=== PATIENT | female | born 1980 | race Caucasian/White ===

== ENCOUNTER 2016-09-16 16:29 | Inpatient (IN) | payer BC ==
[2016-09-16] VITALS (9 sets, daily range): BP systolic 111–164; BP diastolic 65–87; PULSE 98–119; RESP 16–25; TEMP 98.3–98.9; O2SAT 93–100
[~2016-09-16] VITALS: Ht 152.4 cm; Wt 57.3 kg
[2016-09-16] MEDS ORDERED: methylPREDNISolone SOD SUCC 125 MG/2 ML VIAL IVP ONE (16:45)
[2016-09-16] MEDS ORDERED: SODIUM CHLORIDE 0.9% FLUSH 5 ML FLUSH IVF PRN (16:45)
[2016-09-16] MEDS: RESP: ALBUTEROL 2.5 MG/IPRATROPIUM 0.5 MG NEB (SCH) INH ×2 (16:58→16:59)
--- NOTE | 2016-09-16 17:10 | PD ---
HPI Chief Complaint: Respiratory Distress Time Seen by Provider: 16:40 Travel History International Travel<30 days: No Contact w/Intl Traveler<30days: No Traveled to known affect area: No History of Present Illness HPI 36-year-old female came to the emergency room with history of sudden onset respiratory distress, coughing up frothy and bloody secretions after a lap cholecystectomy. Patient was at the [facility] and was extubated after the surgery and was in the recovery dissection. She was noticed to go into respiratory distress along with the frothy hemoptysis. EMS was called and as per them patient looked uncomfortable sitting up. She was saturating in the 80s. They put her on a BiPAP which soon after made her comfortable and her oxygen saturation improved. She was transported with a BiPAP on. Upon arrival patient looked comfortable and oxygen saturation of 98-99%. She was on pressure of 10 and 5 on the BiPAP. Patient is otherwise a healthy person. She does have history of asthma and occasionally uses albuterol. Patient was moved from the gurney to the stretcher and the EMS BiPAP was taken out. Within a minute patient started to go into respiratory distress and coughing frothy hemoptysis. Her sats went down to 87% on 2 L of oxygen via nasal cannula. BiPAP was reapplied. [facility] Past Medical History Narrative Medical List of her past medical history as reviewed from the nursing note. Asthma: Yes ?: Unknown LMP: 09/16/16 : 0 Past Surgical History Cholecystectomy: Yes Social History Alcohol Use: No Tobacco Use: No Substance Use: No Allergies-Medications (Allergen,Severity, Reaction): Coded Allergies: UNOBTAINABLE (Unverified , 09/16/16) Comments Denied of any medical allergies Reported Meds & Prescriptions Reported Meds & Active Scripts Active Narrative Medication Patient uses albuterol occasionally as per the Review of Systems Except as stated in HPI: all other systems reviewed are Neg Physical Exam Narrative GENERAL: Awake, alert, significant distress SKIN: Warm and dry. HEAD: Atraumatic. Normocephalic. EYES: Pupils equal and round. No scleral icterus. No injection or drainage. ENT: No nasal bleeding or discharge. Mucous membranes pink and moist. NECK: Trachea midline. No JVD. CARDIOVASCULAR: Regular rate and rhythm. No murmur appreciated. RESPIRATORY: Decreased air entry with crackles by lateral up to the apex GASTROINTESTINAL: Abdomen soft, non-tender, nondistended. Hepatic and splenic margins not palpable. MUSCULOSKELETAL: No obvious deformities. No clubbing. No cyanosis. No edema. NEUROLOGICAL: Awake and alert. No obvious cranial nerve deficits. Motor grossly within normal limits. Normal speech. PSYCHIATRIC: Appropriate mood and affect; insight and judgment normal. Data Data Last Documented VS Vital Signs Date Time Temp Pulse Resp B/P Pulse Ox O2 Delivery O2 Flow Rate FiO2 09/16/16 18:00 106 16 140/87 98 Room Air 09/16/16 16:44 100 09/16/16 16:29 98.9 Orders Complete Blood Count With Diff (09/16/16 16:40) Comprehensive Metabolic Panel (09/16/16 16:40) B-Type Natriuretic Peptide (09/16/16 16:40) Prothrombin Time / Inr (Pt) (09/16/16 16:40) Magnesium (Mg) (09/16/16 16:40) Ckmb (Isoenzyme) Profile (09/16/16 16:40) Troponin I (09/16/16 16:40) Arterial Blood Gas (Abg) (09/16/16 16:40) Urinalysis - C+S If Indicated (09/16/16 16:40) Blood Culture (09/16/16 16:40) Iv Access Insert/Monitor (09/16/16 16:40) Electrocardiogram (09/16/16 16:40) Ecg Monitoring (09/16/16 16:40) Oximetry (09/16/16 16:40) Oxygen Administration (09/16/16 16:40) Chest, Single Ap (09/16/16 16:40) Sodium Chloride 0.9% Flush (Ns Flush) (09/16/16 16:45) Methylprednisolone So Succ Inj (Solumedr (09/16/16 16:45) Albuterol-Ipratropium Neb (Duoneb Neb) (09/16/16 16:45) Resp Bipap / Cpap Non Invas Vt (09/16/16 16:40) Ct Pulmonary Angiogram (09/16/16 17:48) CKMB (09/16/16 17:00) CKMB% (09/16/16 17:00) Admit Order (Ed Use Only) (09/16/16 19:04) Labs Laboratory Tests Test 09/16/16 09/16/16 17:00 17:15 White Blood Count 24.4 TH/MM3 Red Blood Count 4.99 MIL/MM3 Hemoglobin 14.4 GM/DL Hematocrit 41.7 % Mean Corpuscular Volume 83.6 FL Mean Corpuscular Hemoglobin 28.8 PG Mean Corpuscular Hemoglobin 34.4 % Concent Red Cell Distribution Width 12.8 % Platelet Count 262 TH/MM3 Mean Platelet Volume 8.0 FL Neutrophils (%) (Auto) 93.9 % Lymphocytes (%) (Auto) 3.3 % Monocytes (%) (Auto) 2.6 % Eosinophils (%) (Auto) 0.0 % Basophils (%) (Auto) 0.2 % Neutrophils # (Auto) 22.9 TH/MM3 Lymphocytes # (Auto) 0.8 TH/MM3 Monocytes # (Auto) 0.6 TH/MM3 Eosinophils # (Auto) 0.0 TH/MM3 Basophils # (Auto) 0.0 TH/MM3 CBC Comment DIFF FINAL Differential Comment Prothrombin Time 10.5 SEC Prothromb Time International 1.0 RATIO Ratio Sodium Level 137 MEQ/L Potassium Level 4.1 MEQ/L Chloride Level 106 MEQ/L Carbon Dioxide Level 21.5 MEQ/L Anion Gap 10 MEQ/L Blood Urea Nitrogen 12 MG/DL Creatinine 0.92 MG/DL Estimat Glomerular Filtration 70 ML/MIN Rate Random Glucose 142 MG/DL Calcium Level 8.2 MG/DL Magnesium Level 1.8 MG/DL Total Bilirubin 0.7 MG/DL Aspartate Amino Transf 65 U/L (AST/SGOT) Alanine Aminotransferase 105 U/L (ALT/SGPT) Alkaline Phosphatase 68 U/L Total Creatine Kinase 128 U/L Creatine Kinase MB 0.5 NG/ML Troponin I LESS THAN 0.02 NG/ML B-Type Natriuretic Peptide 11 PG/ML Total Protein 7.5 GM/DL Albumin 4.1 GM/DL Blood Gas Puncture Site RT RADIAL Blood Gas Patient Temperature 98.6 Blood Gas HCO3 19 mmol/L Blood Gas Base Excess -5.0 mmol/L Blood Gas Oxygen Saturation 96 % Arterial Blood pH 7.37 Arterial Blood Partial 34 mmHg Pressure CO2 Arterial Blood Partial 518 mmHG Pressure O2 Arterial Blood Oxygen Content 21.6 Vol % Arterial Blood 1.4 % Carboxyhemoglobin Arterial Blood Methemoglobin 2.1 % Blood Gas Hemoglobin 15.0 G/DL Oxygen Delivery Device BiPAP Blood Gas Ventilator Setting PEEP6/PS12 Blood Gas Inspired Oxygen 100 % MDM Medical Decision Making Medical Screen Exam Complete: Yes Emergency Medical Condition: Yes Medical Record Reviewed: Yes Interpretation(s) Twelve-lead EKG was reviewed by me. Normal sinus rhythm, normal axis, tachycardia, nonspecific ST-T wave changes. Heart rate of 103 bpm. Differential Diagnosis Flash pulmonary edema, noncardiogenic pulmonary edema Narrative Course 5:32 PM patient was started back on BiPAP at the pressures of 14 and 7 and 100% FiO2. I just reviewed the blood gas and seems like patient is oxygenating rather well. I've asked the respiratory therapist to dial down the FiO2. Patient is in mild metabolic acidosis. In my opinion patient is in non- cardiogenic pulmonary edema probably from the general anesthesia. Chest x-ray shows bibasilar interstitial edema. Awaiting for the blood test results to come back. I have given patient 2 duo chico. I've ordered a stat echocardiogram and spoke with the senior communications specialist Dr. Chatman who has agreed to read it. Patient will require to be admitted to the ICU. Awaiting for the test results. Scars this with the who understands the plan. I've given patient IV Solu-Medrol bolus as well. 5:49 PM CBC is back and shows significant leukocytosis. This could be from the recent stress. I went to reassess her and patient had to come out of her BiPAP in order to cough and spit. She continues to have the hemoptysis. I have ordered a CT pulmonary angiogram at this point. Patient's FiO2 dropped down to 87-88% after being less than a minute off the BiPAP. Heart rate went up to 128. She did produce substantial amount of frothy mucus which was covered with blood. I had a discussion with her and her regarding a possibility of intubation if this continues to happen or gets worse. My concern is that her pulmonary edema will get worse. Based on what the CT pulmonary angiogram shows that would help this decision as well. However, her is strongly opposing any idea of intubation. 6:31 PM patient has not had anymore episode of hemoptysis. She has maintained her oxygen saturation on the BiPAP. Awaiting for the CAT scan to rule out PE. Rest of the blood test results are back. She does have leukocytosis but chemistries within normal limits. 7:[address] Mcmullen who accepted the patient in ICU. Awaiting for the CT pulmonary angiogram. Critical Care Narrative Aggregate critical care time was 75 minutes. Time to perform other separately billable procedures was not included in the critical care time. My time did not include minutes spent treating any other patients simultaneously or on activities that did not directly contribute to the patient's treatment. The services I provided to this patient were to treat and/or prevent clinically significant deterioration that could result in: Respiratory distress, noncardiogenic pulmonary edema, status post cholecystectomy, hypoxia I provided critical care services requiring my management, as noted below: Chart data review, documentation time, medication orders and management, vital sign assessments/reviewing monitor data, ordering and reviewing lab tests, ordering and interpreting/reviewing x-rays and diagnostic studies, care of the patient and discussion of the patient with the admitting physicians. Procedures EKG Prior to Arrival: No Physician Communication Physician Communication Dr. Mcmullen Diagnosis Primary Impression: Non-cardiogenic pulmonary edema Additional Impressions: Respiratory distress Hemoptysis Status post cholecystectomy Leukocytosis Qualified Code: D72.829 - Leukocytosis, unspecified type Hypoxia Admitting Information Admitting Physician Requests: Admit Scripts Albuterol 18 GM Inh (Ventolin Hfa 18 GM Inh)90 Mcg/Act Aer2 Puff INH Q4-6H PRN ( SHORTNESS OF BREATH) #1 INHALER Ref 0 Prov:Ana Maria Garcia MD 09/18/16 Docusate Sodium (Colace)100 Mg Api750 Mg PO BID #60 CAP Ref 0 Prov:Ana Maria Garcia MD 09/18/16 Hydrocodone-Acetaminophen ([place])5-325 mg Tab1 Tab PO Q4H PRN (PAIN) #20 TAB Ref 0 Prov:Ana Maria Garcia MD 09/18/16 Nemo Morales MD Sep 16, 2016 17:10
--- NOTE | 2016-09-16 17:12 | RADRPT ---
EXAM DATE/TIME: 09/16/2016 16:47 [facility] COMPARISON: No previous studies available for comparison. INDICATIONS : Short of breath. MEDICAL HISTORY : None. SURGICAL HISTORY : Cholecystectomy. ENCOUNTER: Initial ACUITY: 1 day PAIN SCORE: 7/10 LOCATION: Bilateral chest FINDINGS: There is hazy airspace disease in the lungs, predominantly on the right side especially in the right upper lobe. Reportedly patient is recently postop with postoperative vomiting noted. Differential bruce gnosis includes aspiration and pneumonia. Trace pleural fluid. No pneumothorax. The heart size normal . CONCLUSION: Hazy airspace disease in the lungs. Reportedly there is recent history of cholecystectomy with vomiti ng postop. Differential diagnosis includes aspiration and pneumonia. Star Chatman MD on September 16, 2016 at 17:08 Board Certified Radiologist. This report was verified electronically.
[2016-09-16 17:34] LABS: AUTOMATED NEUTROPHIL # 22.9 TH/MM3 (1.8-7.7); BASOPHIL % 0.2 % (0.0-2.0); HEMATOCRIT 41.7 % (35.0-46.0); HEMO FLAGS DIFF FINAL; LYMPH % 3.3 % (9.0-44.0); LYMPHOCYTE # 0.8 TH/MM3 (1.0-4.8); MEAN CELL VOLUME 83.6 FL (80.0-100.0); MEAN CORPUSCULAR HEMOGLOBIN 28.8 PG (27.0-34.0); MEAN CORPUSCULAR HGB CONC 34.4 % (32.0-36.0); MONO % 2.6 % (0.0-8.0); NEUT % 93.9 % (16.0-70.0); PLATELET COUNT 262 TH/MM3 (150-450); RED BLOOD COUNT 4.99 MIL/MM3 (4.00-5.30); RED CELL DISTRIBUTION WIDTH 12.8 % (11.6-17.2); WHITE BLOOD COUNT 24.4 TH/MM3 (4.0-11.0)
[2016-09-16 17:44] LABS: PROTHROMBIN TIME - PATIENT 10.5 SEC (9.8-11.6)
[2016-09-16 18:06] LABS: BLOOD GAS CARBOXYHEMOGLOBIN 1.4 % (0-4); BLOOD GAS HCO3 19 mmol/L (22-26); BLOOD GAS METHEMOGLOBIN 2.1 % (0-2); BLOOD GAS O2 HGB SATURATION 96 % (90-100); BLOOD GAS OXYGEN CONTENT 21.6 Vol % (12.0-20.0); BLOOD GAS PCO2 34 mmHg (38-42); BLOOD GAS PO2 518 mmHG (61-120); CRITICAL VALUE NO; OXYGEN DEVICE BiPAP; TEMP CORR TO 98.6; VENT SETTINGS PEEP6/PS12
[2016-09-16 18:07] LABS: DRAW SITE RT RADIAL; FIO2 100 %; NUMBER OF ARTERIAL PUNCTURES 1; STAT YES; ULNAR PULSE PRESENT
[2016-09-16 18:16] LABS: ALKALINE PHOSPHATASE 68 U/L (45-117); ALT (GPT) 105 U/L (10-53); ANION GAP 10 MEQ/L (5-15); AST (GOT) 65 U/L (15-37); BICARBONATE 21.5 MEQ/L (21.0-32.0); BLOOD UREA NITROGEN 12 MG/DL (7-18); CHLORIDE 106 MEQ/L (98-107); CREATINE KINASE 128 U/L (26-192); GLOMERULAR FILTRATION RATE 70 ML/MIN (>89); MAGNESIUM 1.8 MG/DL (1.5-2.5); POTASSIUM 4.1 MEQ/L (3.5-5.1); SODIUM (NA) 137 MEQ/L (136-145); TOTAL BILIRUBIN ADULT 0.7 MG/DL (0.2-1.0)
[2016-09-16 18:29] LABS: CKMB 0.5 NG/ML (0.5-3.6)
[2016-09-16] MEDS ORDERED: IOHEXOL 350 MG/ML 10 ML VIAL (for RAD DIAG) IV ONE (19:24)
--- NOTE | 2016-09-16 19:38 | RADRPT ---
EXAM DATE/TIME: 09/16/2016 19:19 [facility] COMPARISON: No previous studies available for comparison. INDICATIONS : Post-operation cholecystectomy today; now short of breath with bloody, frothy, sputum. IV CONTRAST: 60 cc Omnipaque 350 (iohexol) IV RADIATION DOSE: 23.09 CTDIvol (mGy) MEDICAL HISTORY : Asthma SURGICAL HISTORY : Cholecystectomy. ENCOUNTER: Initial ACUITY: 1 day PAIN SCALE: 0/10 LOCATION: chest TECHNIQUE: Volumetric scanning of the chest was performed using a pulmonary embolism protocol MIP images were re constructed. Using automated exposure control and adjustment of the mA and/or kV according to patien t size, radiation dose was kept as low as reasonably achievable to obtain optimal diagnostic quality images. FINDINGS: PULMONARY ARTERIES: No filling defects are seen in the pulmonary arteries through the segmental level. LUNGS: There are areas of patchy and confluent areas of consolidation seen throughout the lungs. PLEURAE: There is no pleural thickening or pleural effusion. MEDIASTINUM: There is good visualization of the great vessels of the middle mediastinum. No evidence of mediastin al or hilar adenopathy/mass. MUSCULOSKELETAL: Within normal limits for patient age. MISCELLANEOUS: The visualized upper abdominal organs demonstrate no acute abnormality. CONCLUSION: 1. No pulmonary embolus. 2. Widespread consolidation throughout the lungs. This is likely post inflammatory or related to genesis a. Robert Brown MD on September 16, 2016 at 19:34 Board Certified Radiologist. This report was verified electronically.
[2016-09-16] MEDS ORDERED: LORazepam 2 MG/ML VIAL IV PUSH PRN (20:45)
[2016-09-16] MEDS ORDERED: LEVOFLOXACIN 750 MG PREMIX INJ 150 ML IV ONE (21:00)
[2016-09-16] MEDS ORDERED: ONDANSETRON HCL 4 MG/2 ML VIAL IV PRN (22:15)
[2016-09-16] MEDS ORDERED: RESP: ALBUTEROL 2.5 MG/3 ML NEB (PRN) INH (22:15)
[2016-09-16] MEDS ORDERED: SODIUM CHLORIDE 0.9% FLUSH 5 ML FLUSH IV FLUSH PRN (22:15)
[2016-09-16] MEDS ORDERED: MORPHINE SULFATE 4 MG/ML INJ IV PRN (22:15)
[2016-09-16] MEDS ORDERED: CHLORHEXIDINE GLUCONATE 2 % 1 PACK (2 CLOTHS) TOP PRN (22:15)
[2016-09-16] MEDS ORDERED: MISCELLANEOUS NURSING INFORMATION XX SCH (22:15)
[2016-09-16 22:53] LABS: BACTERIA, URINE OCC /hpf; BLOOD, URINE NEG (NEG); COMMENT (UR) CULT NOT INDICATED; CULTURE IF INDICATED CULT NOT INDICATED; GLUCOSE,URINE 150 mg/dL (NEG); KETONE, URINE 10 mg/dL (NEG); MUCUS URINE FEW /lpf (OCC); NITRITE,URINE NEG (NEG); PH, URINE 5.5 (5.0-8.5); SQUAMOUS EPITHELIAL CELL URINE 3 /hpf (0-5); URINE COLOR YELLOW (YELLW/STRAW)
--- NOTE | 2016-09-16 23:15 | HHI.HP ---
HPI Service Critical Care Medicine Primary Care Physician Unknown Admission Diagnosis noncardiogenic pulmonary edema, hemoptysis, hypoxia, respiratory dis Diagnosis: Travel History International Travel<30 Days: No Contact w/Intl Traveler <30 Da: No Traveled to Known Affected Are: No History of Present Illness 36 yo Female with PMH of asthma who states that she underwent lap cholecystectomy today by Dr. Agosto due to a 1.5 cm cholelithiasis and possible gallbladder polyp. She was extubated postoperatively and then went into respiratory distress and was coughing up pink frothy sputum. Sats were in the 80s and she was placed on Bipap 10/5 and was very comfortable on Bipap but then she removed her Bipap to cough and sats were in mid 80s on NC so Bipap mask was replaced. CXR was consistent with pulmonary edema. She denies chest pain. No h/o VTE or prior cardiac history. Afebrile. Denies abdominal pain or nausea. Review of Systems ROS Limitations: Clinical Condition Past Family Social History Allergies: Coded Allergies: UNOBTAINABLE (Unverified , 09/16/16) Past Medical History Asthma Past Surgical History She denies prior surgical history. Lap cholecystectomy today per Surendra Reported Medications Occasional albuterol as needed Family History Father of biliary cancer at age 65 Social History She denies history of tobacco abuse, Drinks occasional alcohol (about one duglas per week) No illicit drug use Physical Exam Vital Signs Vital Signs Date Time Temp Pulse Resp B/P Pulse Ox O2 Delivery O2 Flow Rate FiO2 09/16/16 23:00 98.3 111 21 130/74 97 09/16/16 21:54 98 25 111/66 96 3 09/16/16 20:43 93 Nasal Cannula 4.00 09/16/16 20:23 97 3 09/16/16 20:00 100 100 09/16/16 18:00 106 16 140/87 98 Room Air 09/16/16 17:02 119 16 164/65 98 Room Air 09/16/16 16:44 99 100 09/16/16 16:35 99 BiPAP 100 09/16/16 16:35 105 22 93 Room Air 09/16/16 16:29 98.9 110 16 158/79 93 Physical Exam Temp 98.9 pulse 90 respirations 18 blood pressure 130/74 700% on 3 L nasal cannula GENERAL: Well-nourished, well-developed patient who is sitting up in bed, pleasant, talkative. SKIN: Warm and dry. HEAD: Atraumatic. Normocephalic. EYES: Pupils equal and round. No scleral icterus. No injection or drainage. ENT: No nasal bleeding or discharge. Mucous membranes pink and moist. NECK: Trachea midline. No JVD. CARDIOVASCULAR: Regular rate and rhythm, sinus rhythm on the monitors.. No murmurs rubs or gallops. RESPIRATORY: Breathing comfortably on nasal cannula without accessory muscle use. She has bibasilar Rales but is clear throughout the remainder of lung osei. Breath sounds are equal bilaterally. No stridor. GASTROINTESTINAL: Abdomen soft, non-tender, mildly distended. No bowel sounds. There are Steri-Strips in place at trocar sites, no blood. MUSCULOSKELETAL: Extremities without clubbing, cyanosis, or edema. No obvious deformities. NEUROLOGICAL: Awake and alert. No obvious cranial nerve deficits. Motor grossly within normal limits. Five out of 5 muscle strength in the arms and legs. Normal speech. Laboratory Laboratory Tests Test 09/16/16 09/16/16 09/16/16 17:00 17:15 22:00 White Blood Count 24.4 Red Blood Count 4.99 Hemoglobin 14.4 Hematocrit 41.7 Mean Corpuscular Volume 83.6 Mean Corpuscular Hemoglobin 28.8 Mean Corpuscular Hemoglobin 34.4 Concent Red Cell Distribution Width 12.8 Platelet Count 262 Mean Platelet Volume 8.0 Neutrophils (%) (Auto) 93.9 Lymphocytes (%) (Auto) 3.3 Monocytes (%) (Auto) 2.6 Eosinophils (%) (Auto) 0.0 Basophils (%) (Auto) 0.2 Neutrophils # (Auto) 22.9 Lymphocytes # (Auto) 0.8 Monocytes # (Auto) 0.6 Eosinophils # (Auto) 0.0 Basophils # (Auto) 0.0 CBC Comment DIFF FINAL Differential Comment Prothrombin Time 10.5 Prothromb Time International 1.0 Ratio Sodium Level 137 Potassium Level 4.1 Chloride Level 106 Carbon Dioxide Level 21.5 Anion Gap 10 Blood Urea Nitrogen 12 Creatinine 0.92 Estimat Glomerular Filtration 70 Rate Random Glucose 142 Calcium Level 8.2 Magnesium Level 1.8 Total Bilirubin 0.7 Aspartate Amino Transf 65 (AST/SGOT) Alanine Aminotransferase 105 (ALT/SGPT) Alkaline Phosphatase 68 Total Creatine Kinase 128 Creatine Kinase MB 0.5 Troponin I LESS THAN 0.02 B-Type Natriuretic Peptide 11 Total Protein 7.5 Albumin 4.1 Blood Gas Puncture Site RT RADIAL Blood Gas Patient Temperature 98.6 Blood Gas HCO3 19 Blood Gas Base Excess -5.0 Blood Gas Oxygen Saturation 96 Arterial Blood pH 7.37 Arterial Blood Partial 34 Pressure CO2 Arterial Blood Partial 518 Pressure O2 Arterial Blood Oxygen Content 21.6 Arterial Blood 1.4 Carboxyhemoglobin Arterial Blood Methemoglobin 2.1 Blood Gas Hemoglobin 15.0 Oxygen Delivery Device BiPAP Blood Gas Ventilator Setting PEEP6/PS12 Blood Gas Inspired Oxygen 100 Urine Color YELLOW Urine Turbidity CLEAR Urine pH 5.5 Urine Specific [place] GREATER THAN 1.050 Urine Protein TRACE Urine Glucose (UA) 150 Urine Ketones 10 Urine Occult Blood NEG Urine Nitrite NEG Urine Bilirubin NEG Urine Urobilinogen LESS THAN 2.0 Urine Leukocyte Esterase TRACE Urine WBC 2 Urine Squamous Epithelial 3 Cells Urine Bacteria OCC Urine Mucus FEW Microscopic Urinalysis Comment CULT NOT INDICATED Date/Time Procedure Status Source Growth 09/16/16 17:05 Aerobic Blood Culture Received Blood Peripheral Pending 09/16/16 17:05 Anaerobic Blood Culture Received Blood Peripheral Pending Result Diagram: 09/16/16 1700 09/16/16 1700 Assessment and Plan Assessment and Plan NEURO: Currently denies postoperative pain Lortab prn pain. Morphine when necessary breakthrough pain RESP: Acute noncardiogenic pulmonary edema h/o asthma This likely represents negative pressure pulmonary edema as she does not appear intravascularly overloaded. In fact she may be a little dry as she is thirsty, urine specific gravity elevated. I/o from OR not available to me currently. She has no stridor. Natural course of this process is to improve with supportive care. Wean NC as tolerated. Received solumedrol 125 mg IV in the ED. Albuterol q2 prn. CTA negative for PE. Bilateral opacities c/w pulmonary edema Followup Echo. Serial troponins negative. CV: She is normotensive. Monitor hemodynamics GI: POD #0 Laparoscopic cholecystectomy pathology pending Mild transaminase elevation expected post-op Clear liquids FEN/RENAL: Monitor I/o. Monitor electrolytes and replace as indicated. ID: Leukocytosis likely demargination secondary to surgery. Bilateral opacities on CT most consistent with pulmonary edema. Aspiration also possible but less likely given that she was npo. Will cover with levaquin up front but if she improves rapidly (as would be expected of neg pressure pulmonary edema), then could stop antibiotics from my standpoint. HEME: No acute hematologic issues. ENDO: Mild hyperglycemia secondary to surgery, steroid. Low-dose insulin sliding scale at bedside glucose is greater than 185. PROPH: Heparin subcutaneous for DVT prophylaxis start 09/17/16. Protonix 40 mg IV daily for stress ulcer prophylaxis. ACCESS: Peripheral IV providing adequate access at this time. Patient and her were updated at bedside and questions answered. Dr. Agosto updated 09/17. Level 3 Debra Mcmullen MD Sep 16, 2016 23:15
[2016-09-17] VITALS (14 sets, daily range): BP systolic 96–128; BP diastolic 58–67; PULSE 78–106; RESP 23–32; TEMP 98–98.5; O2SAT 94–100
[2016-09-17] MEDS: ACETAMINOPHEN 325 MG TAB PO PRN ×4 (02:42→21:47)
[2016-09-17] MEDS: CHLORHEXIDINE GLUCONATE 2 % 1 PACK (2 CLOTHS) TOP SCH (04:00)
[2016-09-17 04:32] LABS: AUTOMATED NEUTROPHIL # 18.4 TH/MM3 (1.8-7.7); HEMATOCRIT 38.4 % (35.0-46.0); HEMO FLAGS DIFF FINAL; LYMPH % 4.2 % (9.0-44.0); LYMPHOCYTE # 0.8 TH/MM3 (1.0-4.8); MEAN CELL VOLUME 83.2 FL (80.0-100.0); MEAN CORPUSCULAR HEMOGLOBIN 28.4 PG (27.0-34.0); MEAN CORPUSCULAR HGB CONC 34.2 % (32.0-36.0); NEUT % 92.8 % (16.0-70.0); PLATELET COUNT 247 TH/MM3 (150-450); RED BLOOD COUNT 4.62 MIL/MM3 (4.00-5.30); RED CELL DISTRIBUTION WIDTH 12.6 % (11.6-17.2); WHITE BLOOD COUNT 19.9 TH/MM3 (4.0-11.0)
[2016-09-17 04:49] LABS: ANION GAP 11 MEQ/L (5-15); BICARBONATE 23.2 MEQ/L (21.0-32.0); BLOOD UREA NITROGEN 9 MG/DL (7-18); CHLORIDE 104 MEQ/L (98-107); GLOMERULAR FILTRATION RATE 72 ML/MIN (>89); POTASSIUM 4.1 MEQ/L (3.5-5.1); SODIUM (NA) 138 MEQ/L (136-145)
--- NOTE | 2016-09-17 06:51 | RADRPT ---
EXAM DATE/TIME: 09/17/2016 04:38 [facility] COMPARISON: CHEST SINGLE AP, September 16, 2016, 16:47. INDICATIONS : Shortness of breath. MEDICAL HISTORY : None. SURGICAL HISTORY : Cholecystectomy. ENCOUNTER: Subsequent ACUITY: 2 days PAIN SCORE: Non-responsive. LOCATION: chest FINDINGS: The cardiac silhouette is normal in transverse diameter. There is patchy alveolar disease bilaterally compatible with edema or pneumonia. No pleural effusions are identified. CONCLUSION: 1. Patchy alveolar disease characteristic of edema or pneumonia. There has been no significant owusu e when compared to the prior exam. Abilio Albert MD on September 17, 2016 at 6:49 Board Certified Radiologist. This report was verified electronically.
[2016-09-17] MEDS ORDERED: HEPARIN SODIUM - SQ 10,000 UNITS/ML VIAL SQ SCH (09:00)
[2016-09-17] MEDS ORDERED: MORPHINE SULFATE 4 MG/ML INJ IV PUSH PRN (09:00)
[2016-09-17] MEDS ORDERED: PANTOPRAZOLE SODIUM 40 MG VIAL IV SCH (09:00)
[2016-09-17] MEDS ORDERED: ACETAMINOPHEN/HYDROcodone 325 MG/5 MG TAB PO PRN ×2 (09:00)
[2016-09-17] MEDS: POTASSIUM PHOSPHATE/SODIUM PHOSPHATE 250 MG TAB PO SCH ×3 (09:26→17:34)
[2016-09-17] MEDS: SODIUM CHLORIDE 0.9% FLUSH 5 ML FLUSH IV FLUSH SCH ×2 (09:28→21:43)
[2016-09-17] MEDS: DOCUSATE SODIUM 100 MG CAP PO SCH ×2 (09:29→21:00)
--- NOTE | 2016-09-17 09:32 | PD.TRANSFR ---
Transfer Summary Admission Date Sep 16, 2016 at 19:07 Admitting Diagnosis noncardiogenic pulmonary edema, hemoptysis, hypoxia, respiratory dis Diagnoses: (1) Non-cardiogenic pulmonary edema Diagnosis: Principal (2) Hypoxia Diagnosis: Principal (3) Respiratory distress Diagnosis: Principal (4) Leukocytosis Diagnosis: Principal (5) Hemoptysis Diagnosis: Principal Transfer Summary/Subjective 36 yo Female with PMH of asthma who states that she underwent lap cholecystectomy today by Dr. Agosto due to a 1.5 cm cholelithiasis and possible gallbladder polyp. She was extubated postoperatively and then went into respiratory distress and was coughing up pink frothy sputum. Sats were in the 80s and she was placed on Bipap 10/5 and was very comfortable on Bipap but then she removed her Bipap to cough and sats were in mid 80s on [place] so Bipap mask was replaced. CXR was consistent with pulmonary edema. She denies chest pain. No h/o VTE or prior cardiac history. Afebrile. Denies abdominal pain or nausea. SUBJ 09/17: Sitting up in bed breathing comfortably. Chest x-ray shows unchanged pulmonary edema. CT pulmonary angiogram shows no PE, but bilateral pulmonary edema. I have ordered single dose of Lasix. Bedside echo shows normal EF. Full echo pending Objective Vital Signs Date Time Temp Pulse Resp B/P Pulse Ox O2 Delivery O2 Flow Rate FiO2 09/17/16 06:00 78 09/17/16 04:00 98.3 26 102/61 98 09/16/16 21:54 3 09/16/16 20:43 Nasal Cannula 09/16/16 20:00 100 Result Diagram: 09/17/16 0350 09/17/16 0350 Other Results Laboratory Tests Test 09/16/16 17:15 Blood Gas Puncture Site RT RADIAL Blood Gas Patient Temperature 98.6 Blood Gas HCO3 19 mmol/L (22-26) Blood Gas Base Excess -5.0 mmol/L (-2-2) Blood Gas Oxygen Saturation 96 % (90-100) Arterial Blood pH 7.37 (7.380-7.420) Arterial Blood Partial 34 mmHg (38-42) Pressure CO2 Arterial Blood Partial 518 mmHG Pressure O2 (61-120) Arterial Blood Oxygen Content 21.6 Vol % (12.0-20.0) Arterial Blood 1.4 % (0-4) Carboxyhemoglobin Arterial Blood Methemoglobin 2.1 % (0-2) Blood Gas Hemoglobin 15.0 G/DL (12.0-16.0) Oxygen Delivery Device BiPAP Blood Gas Ventilator Setting PEEP6/PS12 Blood Gas Inspired Oxygen 100 % Objective Remarks GENERAL: Well-nourished, well-developed patient who is sitting up in bed, pleasant SKIN: Warm and dry. HEAD: Atraumatic. Normocephalic. EYES: Pupils equal and round. No scleral icterus. No injection or drainage. ENT: No nasal bleeding or discharge. Mucous membranes pink and moist. NECK: Trachea midline. No JVD. CARDIOVASCULAR: Regular rate and rhythm, sinus rhythm on the monitors.. No murmurs rubs or gallops. Bedside echo Nl EF RESPIRATORY: Breathing comfortably on nasal cannula without accessory muscle use. Mild bibasilar Rales but is clear throughout the remainder of lung osei. Breath sounds are equal bilaterally. No stridor. GASTROINTESTINAL: Abdomen soft, non-tender, mildly distended. There are Steri- Strips in place at trocar sites, no blood. MUSCULOSKELETAL: Extremities without clubbing, cyanosis, or edema. No obvious deformities. NEUROLOGICAL: Awake and alert. No obvious cranial nerve deficits. Motor grossly within normal limits. A/P Assessment and Plan NEURO: Lortab prn pain. Morphine when necessary breakthrough pain RESP: Acute noncardiogenic pulmonary edema h/o asthma Most likely negative pressure pulmonary edema as she does not appear intravascularly overloaded. Received solumedrol 125 mg IV in the ED. Albuterol q2 prn. CTA negative for PE. Bilateral opacities c/w pulmonary edema Followup Formal Echo. Bedside echo with normal ejection fraction Serial troponins negative. IV Lasix 20 mg 1 CV: She is normotensive. Monitor hemodynamics IV Lasix 20 mg 1 GI: POD #1 Laparoscopic cholecystectomy pathology pending Mild transaminase elevation post-op Clear liquids, advance diet per Dr. Agosto D/W general surgery Dr. Agosto for post op-he will see her FEN/RENAL: Monitor I/o. Monitor electrolytes and replace as indicated. ID: Leukocytosis likely demargination secondary to surgery and stress Bilateral opacities on CT most consistent with pulmonary edema. Aspiration also possible but less likely that she was npo, but cannot be completely ruled out given. Will cover with Unasyn up front but if she improves rapidly (as would be expected of neg pressure pulmonary edema), then could stop antibiotics HEME: No acute hematologic issues. ENDO: Mild hyperglycemia secondary to surgery, steroid. Low-dose insulin sliding scale at bedside glucose is greater than 185. PROPH: Heparin subcutaneous for DVT prophylaxis start 09/17/16. Protonix 40 mg IV daily for stress ulcer prophylaxis. ACCESS: Peripheral IV providing adequate access at this time. Patient and her were updated at bedside and questions answered. Dr. Agosto updated 09/17. Level 3 [facility] to assume care in am. Continue ICU care for another day Darlene Jones MD Sep 17, 2016 09:32
[2016-09-17] MEDS ORDERED: FUROSEMIDE 20 MG/2 ML VIAL IV PUSH ONE (10:00)
[2016-09-17] MEDS ORDERED: MORPHINE SULFATE 4 MG/ML INJ IV PRN (10:15)
[2016-09-17] MEDS: RESP: ALBUTEROL 2.5 MG/IPRATROPIUM 0.5 MG NEB (SCH) NEB ×3 (10:31→20:26)
[2016-09-17] MEDS: HEPARIN SODIUM - SQ 10,000 UNITS/ML VIAL SQ SCH ×2 (10:59→17:34)
[2016-09-17] MEDS: AMPICILLIN-SULBACTAM INJ 1,500 MG in SODIUM CHLORIDE 0.9% INJ 100 ML IV SCH ×2 (12:48→17:35)
--- NOTE | 2016-09-17 16:12 | HHI.PR ---
Subjective Subjective Notes awake, alert, sore, requesting tylenol. Off O2, room air sat 97%. No labored respirations. tolerated food, voiding well. Objective Vitals/I&O Vital Signs Date Time Temp Pulse Resp B/P Pulse Ox O2 Delivery O2 Flow Rate FiO2 09/17/16 10:34 99 Nasal Cannula 1.00 09/17/16 06:00 78 09/17/16 04:00 98.3 26 102/61 09/16/16 20:00 100 Labs Laboratory Tests Test 09/16/16 09/16/16 09/16/16 09/16/16 17:00 17:15 22:00 22:55 White Blood Count 24.4 Red Blood Count 4.99 Hemoglobin 14.4 Hematocrit 41.7 Mean Corpuscular Volume 83.6 Mean Corpuscular Hemoglobin 28.8 Mean Corpuscular Hemoglobin 34.4 Concent Red Cell Distribution Width 12.8 Platelet Count 262 Mean Platelet Volume 8.0 Neutrophils (%) (Auto) 93.9 Lymphocytes (%) (Auto) 3.3 Monocytes (%) (Auto) 2.6 Eosinophils (%) (Auto) 0.0 Basophils (%) (Auto) 0.2 Neutrophils # (Auto) 22.9 Lymphocytes # (Auto) 0.8 Monocytes # (Auto) 0.6 Eosinophils # (Auto) 0.0 Basophils # (Auto) 0.0 CBC Comment DIFF FINAL Differential Comment Prothrombin Time 10.5 Prothromb Time International 1.0 Ratio Sodium Level 137 Potassium Level 4.1 Chloride Level 106 Carbon Dioxide Level 21.5 Anion Gap 10 Blood Urea Nitrogen 12 Creatinine 0.92 Estimat Glomerular Filtration 70 Rate Random Glucose 142 Calcium Level 8.2 Magnesium Level 1.8 Total Bilirubin 0.7 Aspartate Amino Transf 65 (AST/SGOT) Alanine Aminotransferase 105 (ALT/SGPT) Alkaline Phosphatase 68 Total Creatine Kinase 128 Creatine Kinase MB 0.5 Troponin I LESS THAN 0.02 B-Type Natriuretic Peptide 11 Total Protein 7.5 Albumin 4.1 Blood Gas Puncture Site RT RADIAL Blood Gas Patient Temperature 98.6 Blood Gas HCO3 19 Blood Gas Base Excess -5.0 Blood Gas Oxygen Saturation 96 Arterial Blood pH 7.37 Arterial Blood Partial 34 Pressure CO2 Arterial Blood Partial 518 Pressure O2 Arterial Blood Oxygen Content 21.6 Arterial Blood 1.4 Carboxyhemoglobin Arterial Blood Methemoglobin 2.1 Blood Gas Hemoglobin 15.0 Oxygen Delivery Device BiPAP Blood Gas Ventilator Setting PEEP6/PS12 Blood Gas Inspired Oxygen 100 Urine Color YELLOW Urine Turbidity CLEAR Urine pH 5.5 Urine Specific [place] GREATER THAN 1.050 Urine Protein TRACE Urine Glucose (UA) 150 Urine Ketones 10 Urine Occult Blood NEG Urine Nitrite NEG Urine Bilirubin NEG Urine Urobilinogen LESS THAN 2.0 Urine Leukocyte Esterase TRACE Urine WBC 2 Urine Squamous Epithelial 3 Cells Urine Bacteria OCC Urine Mucus FEW Microscopic Urinalysis Comment CULT NOT INDICATED Nasal Screen MRSA (PCR) NEGATIVE Test 09/16/16 09/17/16 23:43 03:50 Troponin I LESS THAN 0.02 LESS THAN 0.02 White Blood Count 19.9 Red Blood Count 4.62 Hemoglobin 13.1 Hematocrit 38.4 Mean Corpuscular Volume 83.2 Mean Corpuscular Hemoglobin 28.4 Mean Corpuscular Hemoglobin 34.2 Concent Red Cell Distribution Width 12.6 Platelet Count 247 Mean Platelet Volume 7.8 Neutrophils (%) (Auto) 92.8 Lymphocytes (%) (Auto) 4.2 Monocytes (%) (Auto) 3.0 Eosinophils (%) (Auto) 0.0 Basophils (%) (Auto) 0.0 Neutrophils # (Auto) 18.4 Lymphocytes # (Auto) 0.8 Monocytes # (Auto) 0.6 Eosinophils # (Auto) 0.0 Basophils # (Auto) 0.0 CBC Comment DIFF FINAL Differential Comment Sodium Level 138 Potassium Level 4.1 Chloride Level 104 Carbon Dioxide Level 23.2 Anion Gap 11 Blood Urea Nitrogen 9 Creatinine 0.90 Estimat Glomerular Filtration 72 Rate Random Glucose 160 Calcium Level 8.4 Phosphorus Level 1.8 Magnesium Level 2.0 Date/Time Procedure Status Source Growth 09/16/16 17:05 Aerobic Blood Culture - Preliminary Resulted Blood Peripheral NO GROWTH IN 1 DAY 09/16/16 17:05 Anaerobic Blood Culture - Preliminary Resulted Blood Peripheral NO GROWTH IN 1 DAY Abdomen: Non-distended, Other (Incisions clean and dry, no erythema. Minimal ecchymosis at umbilicus.), Post-op tenderness Extremities: No edema, Perfused, SCD's on A/P Assessment and Plan POD 1 lap gray complicated postop by presumed negative pressure pulmonary edema. Clinically improved. D/W Dr Jones re: [place] [facility] [place] clinically improved. He agrees, wants to check CXR for "clearing" of edema. D/W pt and and bedside RN. Follow up with me in 1-2 weeks. Abilio Agosto MD Sep 17, 2016 16:12
--- NOTE | 2016-09-17 16:44 | EKG ---
Date Performed: 09/16/2016 Time Performed: 16:42:16 PTAGE: 36 years EKG: SINUS TACHYCARDIA POSSIBLE RIGHT VENTRICULAR CONDUCTION DELAY NONSPECIFIC T-WAVE ABNORMALIT Y ABNORMAL RHYTHM ECG NO PREVIOUS TRACING DOCTOR: Hilton Melendez Interpretating Date/Time 09/17/2016 16:41:44
--- NOTE | 2016-09-17 17:09 | EKG ---
Date Performed: 09/17/2016 Time Performed: 01:04:52 PTAGE: 36 years EKG: Sinus rhythm . Compared to prior tracing no significant change Normal ECG NO PREVIOUS TRACING DOCTOR: Hilton Melendez Interpretating Date/Time 09/17/2016 16:59:53
--- NOTE | 2016-09-17 19:02 | EC ---
Study Study Date:09/17/2016 STUDY CONCLUSIONS SUMMARY LEFT VENTRICLE: The cavity size was normal. Systolic function was normal. The estimated ejection fraction was in the range of 55% to 60%. Wall motion was normal; there were no regional wall motion abnormalities. Left ventricular diastolic function parameters were normal. If LV function is below 40, please consider prescribing an ACEI or ARB or document rationale for non-use. PROCEDURE DATA STUDY STATUS: Elective. Procedure: Transthoracic echocardiography. Image quality was good. Scanning was performed from the parasternal, apical, and subcostal acoustic windows. Study completion: The patient tolerated the procedure well. Transthoracic echocardiography. M-mode, complete 2D, complete spectral Doppler, and color Doppler. Height: Height: 60in. Weight: Weight: 113.8lb. Body mass index: BMI: 22.3kg/m^2. Body surface area: BSA: 1.47m^2. Patient status: Inpatient. CARDIAC ANATOMY LEFT VENTRICLE: The cavity size was normal. Systolic function was normal. The estimated ejection fraction was in the range of 55% to 60%. Wall motion was normal; there were no regional wall motion abnormalities. Left ventricular diastolic function parameters were normal. AORTIC VALVE: The valve appears to be grossly normal. Doppler: There was no stenosis. No significant regurgitation. MITRAL VALVE: The valve appears to be grossly normal. Doppler: There was no evidence for stenosis. Trace regurgitation. Peak gradient: 2mm Hg (D). RIGHT VENTRICLE: The cavity size was normal. Systolic function was normal. PULMONIC VALVE: The valve appears to be grossly normal. Doppler: There was no evidence for stenosis. Trace regurgitation. TRICUSPID VALVE: The valve appears to be grossly normal. Doppler: There was no evidence for stenosis. Trace regurgitation. PERICARDIUM: There was no pericardial effusion. Patient weight: 113.8lb _Ejection fraction:_ 65-75% _Fractional shortening:_ 32% up to 5Kg 5-11.5Kg 11.6-22.9Kg 23-45Kg 45-57Kg Aortic Root 7-13 <17 13-22 17-27 17-27 LA diam 6-13 <23 24-38 33-47 37-40 RVID 10-17 7-15 7-15 7-18 8-17 LVIDd 12-22 <32 24-38 33-47 37-40 LVPW 2-4 3-6 5-7 6-8 7-8 IVS 2-4 3-6 5-7 6-8 7-8 BASIC MEASUREMENTS ADULT Normal Left ventricle LV internal dimension, ED, chordal level, *41.9 mm 43-52 PLAX LV internal dimension, ES, chordal level, 26.9 mm 23-38 PLAX Fractional shortening, chordal level, PLAX 36 % >29 LV posterior wall thickness, ED 7.45 mm IVS/LVPW ratio, ED 1 <1.3 Ventricular septum Septal thickness, ED 7.45 mm Aortic valve Leaflet separation 17 mm 15-26 Aorta Root diameter, ED 25 mm Left atrium Anterior-posterior dimension 25 mm Anterior-posterior dimension index 1.7 cm/m^2 <2.2 BASIC MEASUREMENTS ADULT Normal Aortic valve Leaflet separation 17 mm 15 DOPPLER MEASUREMENTS ADULT Normal Mitral valve Peak E-wave velocity 76 cm/s Peak A-wave velocity 45.9 cm/s Peak gradient, D 2 mm Hg Peak E/A ratio 1.7 Tricuspid valve Regurgitant peak velocity 182 cm/s Peak RV-RA gradient, S 13 mm Hg Maximal regurgitant velocity 182 cm/s Pulmonic valve Peak velocity, S 64.7 cm/s LEGEND: Mean values are shown as u=mean value. Asterisk (*) corcoran values outside specified normal range. Prepared and signed by Moses Hoang [id number]
[2016-09-18] VITALS: BP 93/57; PULSE 97; RESP 25; TEMP 98.2; O2SAT 92
[2016-09-18] MEDS: POTASSIUM PHOSPHATE/SODIUM PHOSPHATE 250 MG TAB PO SCH ×2 (00:18→06:23)
[2016-09-18] MEDS: AMPICILLIN-SULBACTAM INJ 1,500 MG in SODIUM CHLORIDE 0.9% INJ 100 ML IV SCH ×2 (00:18→06:23)
[2016-09-18 02:00] VITALS: PULSE 89
[2016-09-18] MEDS: RESP: ALBUTEROL 2.5 MG/IPRATROPIUM 0.5 MG NEB (SCH) NEB ×2 (03:24→08:28)
[2016-09-18] MEDS: ACETAMINOPHEN 325 MG TAB PO PRN (03:55)
[2016-09-18] MEDS: HEPARIN SODIUM - SQ 10,000 UNITS/ML VIAL SQ SCH (03:56)
[2016-09-18] MEDS: CHLORHEXIDINE GLUCONATE 2 % 1 PACK (2 CLOTHS) TOP SCH (03:56)
[2016-09-18 04:00] VITALS: BP 99/68; PULSE 102; RESP 26; TEMP 98; O2SAT 97
--- NOTE | 2016-09-18 04:18 | RADRPT ---
EXAM DATE/TIME: 09/18/2016 03:04 [facility] COMPARISON: CHEST SINGLE AP, September 17, 2016, 4:38. INDICATIONS : Shortness of breath, possible pulmonary disease. MEDICAL HISTORY : None. SURGICAL HISTORY : Cholecystectomy. ENCOUNTER: Subsequent ACUITY: 3 days PAIN SCORE: Non-responsive. LOCATION: Bilateral chest FINDINGS: A single view of the chest demonstrates the lungs to be symmetrically aerated without evidence of mas s, infiltrate or effusion. The cardiomediastinal contours are unremarkable. Osseous structures are intact. CONCLUSION: 1. No acute cardiopulmonary disease. Resolution of the previously seen pulmonary edema Abilio Albert MD on September 18, 2016 at 4:16 Board Certified Radiologist. This report was verified electronically.
[2016-09-18 06:00] VITALS: PULSE 86
[2016-09-18 07:34] LABS: BASOPHIL % 0.3 % (0.0-2.0); EOSINOPHIL % 0.3 % (0.0-4.0); HEMATOCRIT 36.3 % (35.0-46.0); HEMO FLAGS DIFF FINAL; LYMPH % 22.3 % (9.0-44.0); LYMPHOCYTE # 2.5 TH/MM3 (1.0-4.8); MEAN CELL VOLUME 83.6 FL (80.0-100.0); MEAN CORPUSCULAR HGB CONC 33.5 % (32.0-36.0); MONO % 5.5 % (0.0-8.0); NEUT % 71.6 % (16.0-70.0); PLATELET COUNT 222 TH/MM3 (150-450); RED BLOOD COUNT 4.34 MIL/MM3 (4.00-5.30); RED CELL DISTRIBUTION WIDTH 12.9 % (11.6-17.2); WHITE BLOOD COUNT 11.2 TH/MM3 (4.0-11.0)
--- NOTE | 2016-09-18 07:36 | HHI.DCPOC ---
Discharge Care Plan Goals to Promote Your Health * To prevent worsening of your condition and complications * To maintain your health at the optimal level Directions to Meet Your Goals Take your medications as prescribed Follow your dietary instruction Follow activity as directed Keep your appointments as scheduled Take your immunizations and boosters as scheduled If your symptoms worsen call your PCP, if no PCP go to Urgent Care Center or Emergency Room Smoking is Dangerous to Your Health. Avoid second hand smoke Call the 24-hour hour crisis hotline for domestic abuse at Ana Maria Garcia MD Sep 18, 2016 07:36
[2016-09-18] MEDS ORDERED: COLA100C3 PO (07:39)
[2016-09-18] MEDS ORDERED: NORC5TAB PO (07:39)
--- NOTE | 2016-09-18 07:40 | HHI.DS ---
Discharge Summary Admission Date Sep 16, 2016 at 19:07 Discharge Date: Sep 18, 2016 Admitting Diagnosis noncardiogenic pulmonary edema, hemoptysis, hypoxia, respiratory dis (1) Non-cardiogenic pulmonary edema ICD Code: J81.1 Diagnosis: Principal (2) Hypoxia ICD Code: R09.02 Diagnosis: Principal (3) Respiratory distress ICD Code: R06.00 Diagnosis: Principal (4) Leukocytosis ICD Code: D72.829 Diagnosis: Principal (5) Hemoptysis ICD Code: R04.2 Diagnosis: Principal Procedures lap gray Brief History - From Admission 36 yo Female with PMH of asthma who states that she underwent lap cholecystectomy today by Dr. Agosto due to a 1.5 cm cholelithiasis and possible gallbladder polyp. She was extubated postoperatively and then went into respiratory distress and was coughing up pink frothy sputum. Sats were in the 80s and she was placed on Bipap 10/5 and was very comfortable on Bipap but then she removed her Bipap to cough and sats were in mid 80s on NC so Bipap mask was replaced. CXR was consistent with pulmonary edema. She denies chest pain. No h/o VTE or prior cardiac history. Afebrile. Denies abdominal pain or nausea. CBC/BMP: 09/18/16 0702 09/17/16 0350 Significant Findings Laboratory Tests Test 09/16/16 09/16/16 09/16/16 09/16/16 17:00 17:15 22:00 23:43 White Blood Count 24.4 TH/MM3 (4.0-11.0) Neutrophils (%) (Auto) 93.9 % (16.0-70.0) Lymphocytes (%) (Auto) 3.3 % (9.0-44.0) Neutrophils # (Auto) 22.9 TH/MM3 (1.8-7.7) Lymphocytes # (Auto) 0.8 TH/MM3 (1.0-4.8) Estimat Glomerular Filtration 70 ML/MIN (>89) Rate Random Glucose 142 MG/DL (74-106) Calcium Level 8.2 MG/DL (8.5-10.1) Aspartate Amino Transf 65 U/L (15-37) (AST/SGOT) Alanine Aminotransferase 105 U/L (10-53) (ALT/SGPT) Troponin I LESS THAN 0.02 LESS THAN 0.02 NG/ML NG/ML (0.02-0.05) (0.02-0.05) Blood Gas HCO3 19 mmol/L (22-26) Blood Gas Base Excess -5.0 mmol/L (-2-2) Arterial Blood pH 7.37 (7.380-7.420) Arterial Blood Partial 34 mmHg (38-42) Pressure CO2 Arterial Blood Partial 518 mmHG Pressure O2 (61-120) Arterial Blood Oxygen Content 21.6 Vol % (12.0-20.0) Arterial Blood Methemoglobin 2.1 % (0-2) Urine Specific [place] GREATER THAN 1.050 (1.002-1.035) Urine Glucose (UA) 150 mg/dL (NEG) Urine Ketones 10 mg/dL (NEG) Urine Leukocyte Esterase TRACE (NEG) Urine Bacteria OCC /hpf (NONE) Urine Mucus FEW /lpf (OCC) Test 09/17/16 09/18/16 03:50 07:02 White Blood Count 19.9 TH/MM3 11.2 TH/MM3 (4.0-11.0) (4.0-11.0) Neutrophils (%) (Auto) 92.8 % 71.6 % (16.0-70.0) (16.0-70.0) Lymphocytes (%) (Auto) 4.2 % (9.0-44.0) Neutrophils # (Auto) 18.4 TH/MM3 8.0 TH/MM3 (1.8-7.7) (1.8-7.7) Lymphocytes # (Auto) 0.8 TH/MM3 (1.0-4.8) Estimat Glomerular Filtration 72 ML/MIN (>89) Rate Random Glucose 160 MG/DL (74-106) Calcium Level 8.4 MG/DL (8.5-10.1) Phosphorus Level 1.8 MG/DL (2.5-4.9) Troponin I LESS THAN 0.02 NG/ML (0.02-0.05) Imaging Last Impressions Chest X-Ray 09/18/16 0600 Signed Impressions: Service Date/Time: Sunday, September 18, 2016 03:04 - CONCLUSION: 1. No acute cardiopulmonary disease. Resolution of the previously seen pulmonary edema Abilio Albert MD CT Angiography 09/16/16 [id number] Signed Impressions: Service Date/Time: September 19:19 - CONCLUSION: 1. No pulmonary embolus. 2. Widespread consolidation throughout the lungs. This is likely post inflammatory or related to edema. Robert Brown MD PE at Discharge GENERAL: Very pleasant 36 yo female, well-nourished, well-developed patient who is sitting up in bed, doesn't appear in acute distress. SKIN: Warm and dry. HEAD: Atraumatic. Normocephalic. EYES: Pupils equal and round. No scleral icterus. No injection or drainage. ENT: No nasal bleeding or discharge. Mucous membranes pink and moist. NECK: Trachea midline. No JVD. CARDIOVASCULAR: Regular rate and rhythm, sinus rhythm on the monitors.. No murmurs rubs or gallops. Bedside echo Nl EF RESPIRATORY: Breathing comfortably on nasal cannula without accessory muscle use. Mild bibasilar Rales but is clear throughout the remainder of lung osei. Breath sounds are equal bilaterally. No stridor. GASTROINTESTINAL: Abdomen soft, non-tender, mildly distended. There are Steri- Strips in place at trocar sites, no blood. MUSCULOSKELETAL: Extremities without clubbing, cyanosis, or edema. No obvious deformities. NEUROLOGICAL: Awake and alert. No obvious cranial nerve deficits. Motor grossly within normal limits. Transfer Summary 36 yo Female with PMH of asthma who states that she underwent lap cholecystectomy today by Dr. Agosto due to a 1.5 cm cholelithiasis and possible gallbladder polyp. She was extubated postoperatively and then went into respiratory distress and was coughing up pink frothy sputum. Sats were in the 80s and she was placed on Bipap 10/5 and was very comfortable on Bipap but then she removed her Bipap to cough and sats were in mid 80s on [place] so Bipap mask was replaced. CXR was consistent with pulmonary edema. She denies chest pain. No h/o VTE or prior cardiac history. Afebrile. Denies abdominal pain or nausea. SUBJ 09/17: Sitting up in bed breathing comfortably. Chest x-ray shows unchanged pulmonary edema. CT pulmonary angiogram shows no PE, but bilateral pulmonary edema. I have ordered single dose of Lasix. Bedside echo shows normal EF. Full echo pending Pt update on day of discharge Feels much better. Say pain is controlled by meds. Ambuklated without any problem, had a normal BM yesterday. Tolerates food regular diet. No sob, feels at baseline and is comfortable to go home. Hospital Course NEURO: Lortab prn pain. Morphine when necessary breakthrough pain RESP: Acute noncardiogenic pulmonary edema h/o asthma Most likely negative pressure pulmonary edema as she does not appear intravascularly overloaded. Received solumedrol 125 mg IV in the ED. Albuterol q2 prn. CTA negative for PE. Bilateral opacities c/w pulmonary edema Echo reviewed and normal EF, no valvulopathies. Bedside echo also with normal ejection fraction Serial troponins negative. Received IV Lasix 20 mg 1 Repeat CXR reviewed and no signs of congestion. Clinically patient improved significantly. CV: She is normotensive. Monitor hemodynamics IV Lasix 20 mg 1 GI: POD #2 Laparoscopic cholecystectomy pathology pending Mild transaminase elevation post-op Clear liquids, advance diet per Dr. Agosto General surgery Dr. Agosto cleared the patient, for DC to follow up as OP FEN/RENAL: Monitor I/o. Monitor electrolytes and replace as indicated. ID: Leukocytosis likely demargination secondary to surgery and stress Bilateral opacities on CT most consistent with pulmonary edema. Aspiration also possible but less likely that she was npo, but cannot be completely ruled out given. Will cover with Unasyn up front but if she improves rapidly (as would be expected of neg pressure pulmonary edema), then could stop antibiotics. Repeat CXR normal no signs of congestion of infiltrates. DC antibiotics. HEME: No acute hematologic issues. ENDO: Mild hyperglycemia secondary to surgery, steroid. Low-dose insulin sliding scale at bedside glucose is greater than 185. PROPH: Heparin subcutaneous for DVT prophylaxis start 09/17/16. Protonix 40 mg IV daily for stress ulcer prophylaxis. ACCESS: Peripheral IV providing adequate access at this time. Patient and her were updated at bedside and questions answered. Patient improved, cleared by consultants for DC to follow up as OP with PCP and consultants. Pt Condition on Discharge: Stable Discharge Disposition: Discharge Home Discharge Time: <= 30 minutes Discharge Instructions DIET: Follow Instructions for: As Tolerated, No Restrictions Activities you can perform: Regular-No Restrictions Follow up Referrals: PCP Follow-up - 3-5 Days Surgical - 1 Week with Rolando Agosto MD New Medications: Albuterol 18 GM Inh (Ventolin Hfa 18 GM Inh) 90 Mcg/Act Aer 2 PUFF INH Q4-6H PRN SHORTNESS OF BREATH #1 Ref 0 INHALER Docusate Sodium (Colace) 100 Mg Cap 100 MG PO BID Constipation #60 Ref 0 CAP Hydrocodone-Acetaminophen ([place]) 5-325 mg Tab 1 TAB PO Q4H PRN PAIN #20 Ref 0 TAB Ana Maria Garcia MD Sep 18, 2016 07:40
[2016-09-18 08:00] VITALS: BP 116/70; PULSE 91; RESP 22; TEMP 98.1; O2SAT 95
[2016-09-18 08:16] LABS: ALKALINE PHOSPHATASE 54 U/L (45-117); ALT (GPT) 119 U/L (10-53); ANION GAP 9 MEQ/L (5-15); AST (GOT) 46 U/L (15-37); BICARBONATE 26.7 MEQ/L (21.0-32.0); BLOOD UREA NITROGEN 13 MG/DL (7-18); CHLORIDE 105 MEQ/L (98-107); GLOMERULAR FILTRATION RATE 81 ML/MIN (>89); MAGNESIUM 2.3 MG/DL (1.5-2.5); POTASSIUM 3.1 MEQ/L (3.5-5.1); SODIUM (NA) 141 MEQ/L (136-145); TOTAL BILIRUBIN ADULT 0.5 MG/DL (0.2-1.0)
[2016-09-18 08:29] VITALS: O2SAT 99
[2016-09-18] MEDS ORDERED: VENTAER INH (09:52)
--- NOTE | 2016-09-19 08:08 | PQ ---
Physician Query Response Document PATIENT: J CARLOS VENEGAS : 1980 ADMIT DATE: 09/16/2016 7:07 PM DISCH DATE: 09/18/2016 9:40 AM RESPONDING PROVIDER #: [email or web address] QUERY TEXT: Cause and Effect Relationship Please clarify in documentation the relationship, if any, between ACUTE PULMONARY EDEMA and ANE STHESIA/SURGERY Such as: -- Conditions are due to or associated -- Unrelated to each other -- Other, please specify The patient's Clinical Indicators include: PER H 36 yo Female with PMH of asthma who underwent lap cholecystectomy today. She was extubated postoperat ively and then went into respiratory distress and was coughing up pink frothy sputum. CXR was cons istent with pulmonary edema. Assessment and Plan Acute noncardiogenic pulmonary edema h/o asthma This likely represents negative pressure pulmonary edema as she does not appear intravascularly overl oaded Query created by: Nesha Mendenhall on 09/17/2016 10:45 AM RESPONSE TEXT: Pulmonary edema related to possible extubation an d bronchospasm (negative pressure pulmonary edema). Patient also has history of asthma which may predispose to negative pressure pulm edema Electronically signed by: Darlene Jones MD 09/19/2016 8:04 AM
--- NOTE | 2016-09-19 10:40 | PQ ---
Physician Query Response Document PATIENT: J CARLOS VENEGAS : 1980 ADMIT DATE: 09/16/2016 7:07 PM DISCH DATE: 09/18/2016 9:40 AM RESPONDING PROVIDER #: sjohn QUERY TEXT: Clarification of Clinical Diagnostic Findings Based on your medical judgment, can you further clarify which, if any, of the following condition( s) is/are responsible for these findings: ?Chronic Respiratory Failure ?Acute Respiratory Failure ?Acute on Chronic Respiratory Failure ?Hypoxia ?Other Specify ?Unable to determine (*please explain) The patient's Clinical Indicators include: PER H7P: 36 yo Female with PMH of asthma who underwent lap cholecystectomy today . She was extubated postopera tively and then went into respiratory distress and was coughing up pink frothy sputum. Sats were in the 80s and she was placed on Bipap 10/5 and was very comfortable on Bipap but then she removed her Bipap to cough and sats were in mid 80s on [place] so Bipap mask was replaced. Query created by: Nesha Mendenhall on 09/17/2016 11:03 AM RESPONSE TEXT: Acute respiratory failure not related to asthma Electronically signed by: Darlene Jones MD 09/19/2016 10:36 AM
== END 2016-09-18 09:40 | disposition home or self-care (01) | DRG 987 ==
LOC: NEPC 16:29 → NEDA 19:07 → HIME 22:50
PROVIDERS: ADMIT Hospitalist; ATTEND Hospitalist
PROC: 0FT44ZZ Resection of Gallbladder, Percutaneous Endoscopic Approach (ICD-10-PCS; principal; 2016-09-16)
PROC: 5A09357 Assistance with Respiratory Ventilation, Less than 24 Consecutive Hours, Continuous Positive Airway Pressure (ICD-10-PCS; 2016-09-16)
DX: J95.821 Acute postprocedural respiratory failure (principal); J81.0 Acute pulmonary edema; E87.2 Acidosis; R04.2 Hemoptysis; K80.10 Calculus of gallbladder with chronic cholecystitis without obstruction; J45.909 Unspecified asthma, uncomplicated; D72.829 Elevated white blood cell count, unspecified; R06.00 Dyspnea, unspecified; Y83.8 Other surgical procedures as the cause of abnormal reaction of the patient, or of later complication, without mention of misadventure at the time of the procedure; Y92.238 Other place in hospital as the place of occurrence of the external cause
CPT/HCPCS: 36600; 71010; 71275; 80048; 80053; 81001; 82550; 82552; 82805; 83735; 83880; 84100; 84484; 85025; 85610; 87040; 87070; 87205; 87641; 88304; 93005; 93306; 94002; 94640; 94664; 96374; 99292; C9113; J0295; J0690; J1644; J1885; J1940; J1956; J2250; J2405; J2930; J3010; J7120; J7613; Q9967

== ENCOUNTER → 2016-09-16 | Day surgery (SDC) | payer BC ==
[~2016-09-16] MED LIST: ACETAMINOPHEN/HYDROcodone 325 MG/5 MG TAB ONE; BUPIVACAINE/EPINEPHRINE 0.25% 50 ML VIAL ONE; COLA100C3 PO; KETOROLAC TROMETHAMINE 30 MG/ML (IVP) VIAL IV PUSH ONE; LACTATED RINGER'S 1000 ML INJ 1,000 ML ONE; MIDAZOLAM HCL 2 MG/2 ML VIAL ONE; NORC5TAB PO; ONDANSETRON HCL 4 MG/2 ML VIAL IV PUSH ONE; PROPOFOL 200 MG/20 ML AMP IV ONE; RESP: ALBUTEROL 2.5 MG/3 ML NEB (SCH) ONE; VENTAER INH; ceFAZolin 2 GM PREMIX 50 ML ONE; metroNIDAZOLE 500 MG INJ 100 ML IV ONE
--- NOTE | 2016-09-16 12:03 | TN ---
cc: SAUD RÍOS M.D. DATE OF SURGERY: 09/16/2016 PREOPERATIVE DIAGNOSES Cholelithiasis with right upper quadrant pain, thickened gallbladder wall and gallbladder polyps. POSTOPERATIVE DIAGNOSES Cholelithiasis with right upper quadrant pain, thickened gallbladder wall and gallbladder polyps, chronic calculous cholecystitis. PROCEDURE Laparoscopic cholecystectomy. SURGEON Dr. Saud Ríos. MATLAB DEVELOPER YOSELIN Sepulveda ANESTHESIA General. INDICATIONS This is a pleasant 36-year-old woman who has experienced right upper quadrant pain that radiates to her back. It has been going on for 2 months. She had a mild elevation in liver function tests and ultrasound was done. Ultrasound showed a 1.5 cm gallstone and some polyps and a 4 mm thickened gallbladder wall. Her father from gallbladder cancer. Recommendations are made for laparoscopic cholecystectomy. INTRAOPERATIVE FINDINGS Relatively small size gallbladder but inflammatory adhesions to the inferior one-third of the gallbladder. Gallbladder was removed and sent to pathology. Estimated blood loss was minimal. The skill set of my nurse practitioner was required to assist in performing this procedure. Her skill set was medically necessary to complete the procedure in a safe manner. She participated by providing excellent visualization via laparoscopy and at the incision sites for appropriate treatment. The surgical services director was at the back table providing appropriate instrumentation throughout the procedure. DESCRIPTION OF PROCEDURE IN DETAIL The patient was identified as Ilana Verdugo, taken to the operating room and placed in the supine position. Sequential compression devices were placed on bilateral lower extremities. Following induction of adequate general endotracheal anesthesia the patient's abdomen was prepped and draped in usual sterile fashion with Betadine. A time-out procedure was performed. Following completion of time-out procedure to everyone's satisfaction within room, 0.25% Marcaine with epinephrine was placed at each incision site. Incision with the inferior aspect of the umbilicus was carried out with scalpel and dissection continued posterior to the level of midline fascia. The base of the umbilicus was retracted anteriorly, fascia was incised with scalpel and entry into the peritoneal cavity was facilitated with a hemostat. Applied medical balloon Mathew trocar was placed in the peritoneal cavity, its balloon inflated with C02 insufflation until a level of 15 mmHg ensued. The patient was placed in a reverse Trendelenburg position and turned to the left. Two upper abdominal 5 mm trocars were placed in the peritoneal cavity under direct laparoscopic view after incision of skin with a scalpel. The gallbladder was immediately identified, was removed from the gallbladder fossa in a dome down technique. Inflammatory adhesions were taken down from the inferior surface of the gallbladder using the harmonic scalpel. Cystic duct and cystic artery were isolated from surrounding tissues. The cystic artery was divided with a harmonic scalpel. Cystic duct was ligated proximally and distally with 0-PDS Endoloops and divided between the Endoloops. The gallbladder was removed from the peritoneal cavity through the infraumbilical fascial port incision site and passed off the field for pathologic evaluation. The right upper quadrant was examined and it was hemostatic. There was no evidence of bilious or bloody drainage. The cystic arterial stump was hemostatic and the cystic duct ligature remained intact. Remaining local anesthetic was placed in ___ position. Trocars were removed under direct visualization. There was no evidence of bleeding from trocar sites. The abdomen was desufflated through the infraumbilical port which was then removed. The infraumbilical fascial incision was closed with interrupted 0 Vicryl sutures. Port sites were irrigated with saline and closed with 4-0 Monocryl subcuticular sutures. Dressings were applied with Mastisol, half-inch brown Steri-Strips. The patient tolerated the procedure without apparent complication. Sponge, needle and instrument counts were correct at the end of the case. MD KITA Amos/TLL /11:38 AM /11:46 AM
== END | disposition home or self-care (01) ==
LOC: ESDC 09:46
PROVIDERS: ATTEND Surgery Trauma Surgery
DX: K80.10 Calculus of gallbladder with chronic cholecystitis without obstruction (principal)
CPT/HCPCS: 00790; 47562; 88304; J0690; J1885; J2250; J2405; J3010; J7120; J7613